=== PATIENT | female | born 1960 ===

== ENCOUNTER 2018-02-08 07:34 | Day surgery (SDC) | payer BC ==
[2018-02-03 10:35] VITALS: BMI 22.1
[2018-02-08] MEDS ORDERED: Iodixanol 320 MG/ML 200 ML BOTTLE IV ONE ×2 (09:54→09:55)
[2018-02-08] MEDS ORDERED: Midazolam 2 MG/2 ML VIAL ONE ×3 (10:06→11:01)
[2018-02-08] MEDS ORDERED: Verapamil 2 ML ONE (11:02)
[2018-02-08] MEDS ORDERED: Nitroglycerin 50mg in D5W 50 MG/250 ML BOTTLE IV ONE (11:11)
--- NOTE | 2018-02-09 03:14 | VAS ---
DATE: 02/08/2018 INDICATION: Claudette is a pleasant 58-year-old female with history of hypertension, diabetes who was referred to me for evaluation of gangrene of the toes, underwent arterial Duplex showing multivessel obstruction and therefore was brought to the chemistry laboratory technician for further evaluation and treatment. PROCEDURES PERFORMED: Distal abdominal aortogram with bilateral iliac runoff, selective bilateral iliofemoral angiogram with runoff. Atherectomy, PROJ ENGINEER of left SFA, 85% stenosis with use of 1.25 CSI atherectomy device and additional balloon angioplasty with 6 x 150 drug-coated balloon with degeneration of 85% on 0% RUFINA-3 flow. Atherectomy and PROJ ENGINEER of the left anterior tibial artery with the use of 1.25 CSI atherectomy device and additional balloon angioplasty with 3.5 x 60 mm balloon degeneration from 100% down to less than 10% improvement in RUFINA flow. 6-Nigerian right femoral arterial access, Mynx closure device for hemostasis. Angiographic findings of the right lower extremity, right common iliac and external iliac patent. Profunda femoris patent. SFA has proximal to mid 85% calcific stenosis. Popliteal patent. Anterior tibial artery 70%. TP trunk proximal 80%. Popliteal PT, PT has 80% stenosis with one-vessel runoff below the knee. Left lower extremity, left common iliac, external iliac patent. Profunda femoris patent. SFA had mid 80-90% calcific stenosis. Popliteal patent 80-100% occluded. Trifurcation 100% occluded with reconstitution at the popliteal via collaterals with one-vessel runoff below the knee up to the foot. Intervention performed, a #6-[place]ian 90 cm [employer] [place] sheath was deployed and subsequently using 0.19 supporting catheter, gold-tip Glidewire was negotiated through the trifurcation lesion into the anterior tibial artery. A 1.25 CSI atherectomy of the tip of patent SFA was done and subsequently balloon angioplasty of the anterior tibial artery with 25 x 60 mm balloon, then subsequently balloon angioplasty of the SFA was done with a 6 x 80 drug-coated balloon. Final angiogram was done showed regeneration of 92% improvement. IMPRESSION: Successful percutaneous transluminal angioplasty atherectomy of the left superficial femoral artery and left anterior tibial artery. 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 We would schedule the patient posterior intervention of the right SFA in one week time and subsequently bring her back for [id number] vascularization of the foot in about 3-4 weeks' time. Continue the patient with antiplatelet therapy. Thank you Dr. Faustin for letting me to participate in the care of your patient. Lefty Ortiz MD cc: Bo Seals DPM
== END 2018-02-08 16:30 | disposition home or self-care (01) ==
LOC: C.CATHLAB 07:34
PROVIDERS: ATTEND Internal Medicine Interventional Cardiology
DX: E11.52 Type 2 diabetes mellitus with diabetic peripheral angiopathy with gangrene (principal); I70.262 Atherosclerosis of native arteries of extremities with gangrene, left leg; Z79.4 Long term (current) use of insulin; I10 Essential (primary) hypertension
CPT/HCPCS: 37225; 82948; J1644; J2250; J3010; Q9966

== ENCOUNTER 2018-03-25 09:37 | Outpatient (CLI) | payer BC | END 2018-03-25 09:38 | disposition home or self-care (01) | LOC: C.LAB 09:37 | DX: I96 Gangrene, not elsewhere classified (principal) ==

== ENCOUNTER 2018-03-31 07:35 | Day surgery (SDC) | payer BC ==
[2018-02-03 10:30] VITALS: BMI 22.1
[2018-03-31] MEDS ORDERED: Midazolam 2 MG/2 ML VIAL ONE ×3 (15:02→15:39)
[2018-03-31] MEDS ORDERED: Iodixanol 320 MG/ML 200 ML BOTTLE IV ONE (15:04)
[2018-03-31] MEDS ORDERED: DiphenhydrAMINE 50 mg/ml Inj IVP ONE (15:45)
[2018-03-31] MEDS ORDERED: Sodium Chloride 0.9% 1,000 ML IV ONE (16:04)
--- NOTE | 2018-04-01 04:10 | VAS ---
DATE: 03/31/2018 INDICATIONS: Ms. 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 She had undergone angioplasty arthrectomy of left SFA and left popliteal artery about six weeks ago and was brought for evaluation. PROCEDURE PERFORMED: Distal abdominal aortogram with bilateral iliac runoff, selective bilateral iliofemoral angiogram with runoff, 5-Filipino right femoral artery access, and manual pressure for hemostasis. TECHNIQUES OF PROCEDURE: After obtaining informed consent, the patient was brought to the cardiac catheterization lab in post-absorptive and nonsedated state. The patient was prepped and draped in the usual sterile fashion. Lidocaine 2% was used for infiltration of anesthesia. Using modified Seldinger technique, a 5-Filipino was introduced in the right femoral artery. Right iliofemoral angiogram with runoff was performed using digital subtraction angiographic views of the right [id number] and right foot profile was obtained. ANGIOGRAPHIC FINDINGS: Right lower extremity: Right common iliac and external iliac patent, profunda femoris patent, SFA has mid 85% calcific stenosis, popliteal artery patent with 2-vessel runoff below the knee. Left lower extremity: Left common iliac and external iliac patent, profunda femoris patent, SFA prior arthrectomy angioplasty well patent with good flow, popliteal artery patent, prior anterior tibial artery procedure well patent with good flow, well collateralized infragenicular vessels with one-vessel runoff below the knee, peroneal feeding under supervision, deep plantar arch with all six angiosomes of the foot getting flow. IMPRESSION: Patent left lower extremity circulation, high-grade stenosis of the right superficial femoral artery. RECOMMENDATION: The patient is to undergo right SFA arthrectomy with additional balloon angioplasty in one to two weeks' time. Lefty Ortiz MD cc: Bo Seals DPM
== END 2018-03-31 20:25 | disposition home or self-care (01) ==
LOC: C.CATHLAB 07:35
PROVIDERS: ATTEND Internal Medicine Interventional Cardiology
DX: I96 Gangrene, not elsewhere classified (principal); I10 Essential (primary) hypertension; E11.51 Type 2 diabetes mellitus with diabetic peripheral angiopathy without gangrene; E78.5 Hyperlipidemia, unspecified; I70.201 Unspecified atherosclerosis of native arteries of extremities, right leg
CPT/HCPCS: 36247; 75625; 75716; 75774; 82948; 99152; 99153; C1766; C1769; C1887; J1200; J1644; J2250; J3010; J7030; Q9966